=== PATIENT | female | born 1975 | race Caucasian/White ===

== ENCOUNTER 2018-06-18 13:38 | Emergency (ER) | payer OTHER ==
[~2018-06-18] VITALS: Ht 165.1 cm; Wt 70.0 kg
[~2018-06-18 13:38] MED LIST: Ativan PO; COLACE; Coumadin dosing per PO; ENDOCET 5-3251 EACH PO; FEOSOL325 MG PO; HYDROCHLOROTHIA25 MG PO; LAMICTAL200 MG PO; LISINOPRIL20 MG PO; LaMICtal PO; MOTRIN800 MG PO; Motrin PO; PERCOCET 5/31 TABLET PO; SEROQUEL100 MG PO; STOOL SOFTENER100 MG PO; WARFARIN SODIU7.5 MG PO
[2018-06-18 14:52] LABS: HEMOGLOBIN 15.1 G/DL (11.9-15.5); MCH 33.2 PG (29.0-34.0); MCV 92.3 FL (83-99); PLATELET COUNT 249 K/uL (156-360); RBC DIS.WIDTH-CV 11.8 % (11.8-14.6); RBC DIS.WIDTH-SD 39.8 % (39-53); RED BLOOD COUNT 4.55 M/uL (3.80-5.20); WHITE BLOOD COUNT 11.4 K/uL (4.1-10.2)
[2018-06-18 15:01] LABS: CHLORIDE 99 mEq/L (99-109); POTASSIUM 3.6 mEq/L (3.7-5.4); SODIUM 141 mEq/L (136-147)
[2018-06-18 15:03] LABS: GLUCOSE 150 mg/dL (70-99)
[2018-06-18 15:07] LABS: CREATININE 0.9 mg/dL (0.6-1.3); GFR ESTIMATE (CALCULATED) > 59 mL/min/
[2018-06-18 15:08] LABS: UREA NITROGEN (BUN) 7 mg/dL (9-23)
[2018-06-18 15:14] LABS: TROP-I INTERPRETATION NEGATIVE; TROPONIN-I < 0.01 ng/mL (0.0-0.30)
[2018-06-18 15:16] LABS: PTT 28.2 SEC (25-37)
[2018-06-18 19:23] LABS: TROP-I INTERPRETATION NEGATIVE; TROPONIN-I < 0.01 ng/mL (0.0-0.30)
[2018-06-18 20:06] VITALS: BP 106/78
== END 2018-06-18 20:17 | disposition home or self-care (01) ==
LOC: EME 13:38 → RME 13:38
PROVIDERS: Physician Assistant
DX: R07.89 Other chest pain (principal); R00.0 Tachycardia, unspecified; R06.02 Shortness of breath; Z86.711 Personal history of pulmonary embolism; F17.200 Nicotine dependence, unspecified, uncomplicated; F32.9 Major depressive disorder, single episode, unspecified; F41.9 Anxiety disorder, unspecified
CPT/HCPCS: 71046; 71275; 80048; 84484; 85027; 85610; 85730; 93005; 99281; 99285; J7030